=== PATIENT | female | born 1935 | race Two or more races ===

== ENCOUNTER 2017-12-06 09:20 | Day surgery (SDC) | payer MEDICARE, OTHER ==
[~2017-12-06] VITALS: Ht 152.4 cm; Wt 72.6 kg
--- NOTE | 2017-12-06 06:30 | Anethesia Preoperative Eval ---
Anesthesia Pre-op PMH/ROS General Date of Evaluation: Dec 06, 2017 Time of Evaluation: 06:29 Anesthesiologist: suze ASA Score: ASA 3 Mallampati Score Class I : Soft palate, uvula, fauces, pillars visible Class II: Soft palate, uvula, fauces visible Class III: Soft palate, base of uvula visible Class IV: Only hard plate visible Mallampati Classification: Class II Surgeon: hazel Diagnosis: abdominal pain Surgical Procedure: egd/colonoscopy Anesthesia History: none Social History: smoking - nonsmoker Family History: no anesthesia problems Allergies: Coded Allergies: No Known Allergies (Unverified , 12/05/17) Past Medical History Cardiovascular: Reports: other - hyperlipidemia Gastrointestinal/Genitourinary: Reports: other - colitis Musculoskeletal/Integumentary: Reports: OA Anesthesia Pre-op Phys. Exam Physician Exam Constitutional: NAD Neurologic: CN 2-12 intact Cardiovascular: RRR Respiratory: CTA Gastrointestinal: S/NT/ND Airway Exam Mallampati Score: Class II MO: limited Neck: short TMD: 2fb ROM: limited Teeth: missing Dentures: upper, lower Anesthesia Pre-op A/P Risk Assessment & Plan Assessment: asa3 Plan: mac Status Change Before Surgery: No Pre-Antibiotics Drug: ARI Huddleston Dec 06, 2017 06:30
--- NOTE | 2017-12-06 09:13 | Short Stay Surgery H&P ---
History of Present Illness History of Present Illness Chief Complaint Abdominal pains and history of colitis/GERDs HPI Heriberto Douglas is a 82 year old female who was admitted on for Abdominal Pain/ colitis followup exam via colonoscopy Patient History Allergies: Coded Allergies: No Known Allergies (Unverified , 12/05/17) PAST MEDICAL HISTORY: (1) Colitis (2) Hyperlipidemia (3) Arthritis Past Surgeries: Social History: Review of Systems Cardiovascular: Reports: no symptoms Respiratory: Reports: no symptoms Skeletal: Reports: no symptoms Gastrointestinal: Reports: gastro esophageal reflux disease Genitourinary: Reports: no symptoms Neurologic: Reports: no symptoms Endocrine: Reports: no symptoms Hematologic: Reports: no symptoms Physical Exam HENT: normal Heart: normal Lungs: normal Abdomen: normal Extremities: normal Genitourinary: normal Plan Plan of Care Upper and lower GI endoscopy Preop Interventions None. Summary of Findings See the reports Final Diagnosis: Attestation Are the patient's medical conditions optimized for surgery? Attestation Response: yes JONATHAN ZAMORA Dec 06, 2017 09:13
--- NOTE | 2017-12-06 09:14 | Pre-Procedure Note/Attestation ---
Pre-Procedure Note/Attestation Complete Prior to Procedure Planned Procedure: left Procedure Narrative: Endoscopic exam of the upper and the lower GI tract with biopsies. Indications for Procedure Pre-Operative Diagnosis: R/O peptic ulcer/colitis/CA. Attestation I attest that I discussed the nature of the procedure; its benefits; risks and complications; and alternatives (and the risks and benefits of such alternatives ), prior to the procedure, with the patient (or the patient's legal medicare sales representative). I attest that, if there was a reasonable possibility of needing a blood transfusion, the patient (or the patient's legal medicare sales representative) was given the [facility] standardized written summary, pursuant to the [place] Blood Safety Act ([place] Health and Safety Code # 1645, as amended). I attest that I re-evaluated the patient just prior to the surgery and that there has been no change in the patient's H&P, except as documented below: JONATHAN ZAMORA Dec 06, 2017 09:14
[~2017-12-06 09:20] MED LIST: LR 1000ml 1,000 ML IVLG SCH
[2017-12-06] MEDS ORDERED: Lidocaine 1% MPF 10mg/ml 5ml ONE (10:00)
[2017-12-06] MEDS ORDERED: Propofol 200mg/20ml IV ONE (10:00)
[2017-12-06] MEDS ORDERED: fentaNYL 100 mcg/2 mL IV PRN (10:00)
[2017-12-06] MEDS ORDERED: Midazolam 2mg/2ml Inj IVP PRN (10:00)
[2017-12-06] MEDS ORDERED: LR 1000ml ONE (10:00)
[2017-12-06] MEDS ORDERED: Atropine Inj 1mg/10ml Syr IV PRN (10:00)
[2017-12-06] MEDS ORDERED: DiphenhydrAMINE 50mg/ml Inj IVP PRN (10:00)
[2017-12-06 10:05] VITALS: BP 132/84
[2017-12-06] MEDS ORDERED: NAMZARIC 21 MG1 EACH PO (10:15)
[2017-12-06] MEDS ORDERED: ZANTAC150 MG ORAL (10:15)
[2017-12-06] MEDS ORDERED: CRESTOR10 M2 ORAL (10:19)
[2017-12-06] MEDS ORDERED: FERROUS SULFAT325 MG ORAL (10:21)
[2017-12-06] MEDS ORDERED: VESICARE5 MG ORAL (10:22)
[2017-12-06] MEDS ORDERED: FOLIC ACID1 MG ORAL (10:22)
[2017-12-06] MEDS ORDERED: RANEXA500 MG ORAL (10:22)
[2017-12-06] MEDS ORDERED: MOBIC7.5 MG ORAL (10:23)
--- NOTE | 2017-12-06 10:41 | Endoscopy Procedure Note ---
Endoscopy Procedure Note Indication for Procedure: Abdominal pain and history of colitis/GERD Procedures Performed: EGD - Mild gastritis of the antrum/biopsied, otherwise normal Upper GI endoscopy, colonoscopy - Completely normal total colon without colitis/tumor/polyp. Mutiple biopsied per random from different parts of colon obtained. Specimen: yes Pt Tolerated Procedure Well: Yes Estimated Blood Loss: none Anesthesiologist: Dr. Pearson Anesthesia: moderate sedation Medication Given: see anesthesia record Implant(s) used?: No 50 yrs or older w/o bx or poly: Yes 10yrs. F/U not recommended: No 10 yrs. F/U needed: No 18 years or older w/prev. colo: No <3yrs. since last colonoscopy: No Med reason:<3 yrs.: System Reason:<3 yrs.: JONATHAN ZAMORA Dec 06, 2017 10:41
--- NOTE | 2017-12-06 10:42 | Discharge Instructions ---
Discharge Instructions Discharge Instructions Follow up with: Dr. buck talk with the son. For Congestive Heart Failure Reminder Report to your physician any weight gain of 5 pounds or more in one week. JONATHAN ZAMORA Dec 06, 2017 10:42
[2017-12-06 10:52] VITALS: BP 123/87
[2017-12-06 11:20] VITALS: BP 150/76
[2017-12-06 12:00] VITALS: BP 144/77
[2017-12-06] MEDS ORDERED: SULFASALAZINE500 MG ORAL (12:45)
--- NOTE | 2017-12-06 20:30 | Procedure Note ---
DATE OF PROCEDURE: 12/06/2017 SURGEON: Yobani Forman M.D. PROCEDURE: Esophagogastroduodenoscopy with biopsy. PREOPERATIVE DIAGNOSIS: Abdominal pain. POSTOPERATIVE DIAGNOSIS: Mild gastritis of the antrum, which was biopsied. Otherwise, complete normal upper gastrointestinal endoscopy. MEDICATION USED: Per Dr. Pearson, anesthesiologist. INSTRUMENT: GIF Olympus upper gastrointestinal video endoscope. DESCRIPTION OF PROCEDURE: The patient after arriving in the endoscopy unit was told about risks and benefits of the procedure, which she accepted and signed informed consent. At this time, she was put on the left lateral decubitus position. After adequate IV sedation, the scope was gently passed through the cricopharyngeal area, was lodged into the upper esophagus, gradually advanced towards gastroesophageal junction. The entire length of the esophagus looked normal and there was no any evidence of abnormality such as tumors, polyps, stricture, etc. At this time, GE junction was examined, which was also normal. Finally, the scope was advanced into the stomach. Gastric cavity was distended with insufflation of air. The areas of the fundus and the body and antrum were examined in city treasurer fashion. The only finding was evidence of mild inflammatory process presenting with mild erythema over the antral area, which was not significant and as such, one random biopsy from the antrum was obtained. Otherwise, the whole gastric cavity revealed no any evidence of tumors, polyps, etc. There was no GI bleeding. The scope was then advanced through the pylorus. First and second portion of duodenum were found to be also completely normal. At this time, the scope was pulled back into the stomach. A retroflexion maneuver was applied. The area of the gastroesophageal junction and the fundus area was examined in a closer fashion, which was also normal. Finally, the scope was pulled out and the procedure was terminated. The patient tolerated the procedure well. Yobani Forman M.D. DR: JAYLYN JOB#: [id number] CC:
--- NOTE | 2017-12-06 21:45 | Procedure Note ---
DATE OF PROCEDURE: 12/06/2017 PROCEDURE: Total colonoscopy with multiple biopsies. PREOPERATIVE DIAGNOSIS: History of ulcerative colitis. POSTOPERATIVE DIAGNOSIS: Completely normal total colonoscopy. Multiple biopsies were taken from different parts of the colon. SURGEON: Yobani Forman M.D. MEDICATION USED: Per Dr. Pearson, anesthesiologist. INSTRUMENT: GIF Olympus videocolonoscope. DESCRIPTION OF PROCEDURE: The patient after arriving in endoscopy unit, was told about risks and benefits of the procedure, which she accepted and signed the informed consent. She was then put on the left lateral decubitus position. After adequate IV sedation, the scope was gently passed through the anal area and examination of this section did not reveal any evidence of major hemorrhoids, colonic inflammation, tumor, polyps, etc. The retroflexion maneuver was also applied, which revealed no abnormalities. Subsequently, the scope was passed from the rectum into the rectosigmoid area and descending colon. There areas were quite redundant and there was evidence of poor colonic cleanup as was noted with the remnant of fluid stool in the colon, which had to be irrigated. However, the rest of the colon including descending, transverse, and the right colon all the way to the base of the cecum as examined revealed no abnormalities. At this point, random biopsies from transverse, descending, rectosigmoid, and rectal area was obtained and subsequently procedure was terminated. The patient tolerated the procedure well and left the endoscopy room in good condition. Yobani Forman M.D. DR: STEVEN JOB#: [id number] CC:
== END 2017-12-06 12:00 | disposition home or self-care (01) ==
LOC: GAS 09:20
DX: K51.90 Ulcerative colitis, unspecified, without complications (principal); K29.50 Unspecified chronic gastritis without bleeding; E78.5 Hyperlipidemia, unspecified; M19.90 Unspecified osteoarthritis, unspecified site; K21.9 Gastro-esophageal reflux disease without esophagitis
CPT/HCPCS: 43239; 45380; J2704; J7120; 94003; 94150